=== PATIENT | female | born 1970 | race Caucasian/White ===

== ENCOUNTER 2019-04-06 16:13 | Emergency (ER) | payer OTHER ==
--- NOTE | 2019-04-06 16:22 | PDOC ---
History of Present Illness - General Stated Complaint: PAIN Time Seen by Provider: 04/06/19 16:21 History Source: Patient Exam Limitations: No Limitations - History of Present Illness Initial Comments: 04/06/19 16:22 Jennyfer Kennedy is a 49F with PMH chronic back pain s/p lifting injury 1 year ago presenting with worsening neck/arm pain and dizziness. 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 Was supposed to have back imaging, but was unable to get insurance to pay for imaging and it was never done. Per at bedside, now has insurance and is eligible for MRI of back. Has daily back/ neck pain, used ibuprofen to control but caused upset stomach. Sees back pain specialist, today got Toradol and 2x trigger point injections. While there, felt dizzy and nauseated, no LOC, but pain worsened, sent to [facility] ED by EMS because doctor was concerned that nausea was related to pain. No other PMH or medications. Denies tobacco/alcohol/drug use. Past History - Past Medical History Allergies/Adverse Reactions: Allergies Allergy/AdvReac Type Severity Reaction Status Date / Time No Known Allergies Allergy Verified 04/06/19 16:35 Home Medications: Ambulatory Orders Methocarbamol [Robaxin -] 500 mg PO BID #14 tablet 04/06/19 Review of Systems - Review of Systems Constitutional: Yes: Weakness. No: Chills, Fever HEENTM: No: Symptoms Reported Respiratory: No: Symptoms reported Cardiac (ROS): No: Symptoms Reported ABD/GI: No: Symptoms Reported : No: Symptoms Reported Musculoskeletal: Yes: Back Pain (T to L spine), Joint Pain (R shoulder), Neck Pain (R neck) Integumentary: No: Symptoms Reported Neurological: No: Numbness, Paresthesia, Tingling, Weakness, Unsteady Gait Endocrine: No: Symptoms Reported All Other Systems: Reviewed and Negative *Physical Exam - Physical Exam General Appearance: Yes: Nourished, Appropriately Dressed. No: Apparent Distress HEENT: positive: EOMI, ANDI, Normal ENT Inspection, Symmetrical, Pharynx Normal , Hearing Grossly Normal. negative: Scleral Icterus (R), Scleral Icterus (L) Neck: positive: Tender (R >>> L), Trachea midline, Supple, Tender lateral (R side), Other (full ROM, no evidence of external injury, unwilling to move neck 2 /2 pain). negative: Lymphadenopathy (R), Lymphadenopathy (L) Respiratory/Chest: positive: Lungs Clear, Normal Breath Sounds. negative: Chest Tender, Respiratory Distress, Accessory Muscle Use, Crackles, Rales, Rhonchi, Stridor, Wheezing Cardiovascular: positive: Regular Rhythm, Regular Rate Gastrointestinal/Abdominal: positive: Normal Bowel Sounds, Flat, Soft. 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 negative: Numbness ED Treatment Course - LABORATORY CBC & Chemistry Diagram: 04/06/19 17:38 04/06/19 17:38 Medical Decision Making - Medical Decision Making 04/06/19 16:22 Jennyfer Kennedy is a 49F with PMH chronic back pain s/p lifting injury 1 year ago presenting with worsening neck/arm pain and dizziness. Presentation concerning for spinal cord compression given R sided pain, but no sensory or motor deficits. IM trigger point injections raises concerns for hematoma vs infected site. Dizziness/nausea concerning for cardiac etiology. Needs imaging and pain control. Will evaluate via: CMP CBC Coags Serum CXR ECG UA/UC Will give 1L IVF, Zofran for nausea/dizziness Will give 1g Ofirmev and 5mg Flexeril for muscle pain 04/06/19 18:8 UA negative for UTI, blood, ketones CBC notable for WBC 11.3 consistent with minor infection ECG shows: NSR with HR 74, QTc 444, no evidence of ischemic changes or TWI 04/06/19 19:57 No fracture noted on CT c-spine read, no evidence of canal stenosis or disc narrowing concerning for nerve radiculopathy. 04/06/19 20:34 Patient stable to be discharged home with f/u with pain specialist. Sent home with Robaxcin for PRN use. Discharge - Discharge Information Problems reviewed: Yes Clinical Impression/Diagnosis: Dizziness, Neck pain on right side, Arm pain, right Back pain Qualifiers: Back pain location: thoracic back pain Chronicity: chronic Back pain laterality : right Qualified Code(s): M54.6 - Pain in thoracic spine Condition: Stable Disposition: HOME - Additional Discharge Information Prescriptions: Methocarbamol [Robaxin -] 500 mg PO BID #14 tablet - Follow up/Referral - Patient Discharge Instructions Patient Printed Discharge Instructions: DI for Neck Pain Additional Instructions: Today you were evaluated for neck/shoulder/back pain, as well as dizziness. We were concerned about your pain, and your dizziness, so we checked your heart, blood labs, and got a CT scan of your neck to evaluate. Your blood labs show: no evidence of infection, anemia, or electrolyte abnormalities Your urine labs show: no urinary tract infection Your CT scan shows: no signs of fracture or nerve pinching Your chest X-ray shows: no evidence of heart disease or pneumonia Your pain is likely related to your injury, but needs an MRI to evaluate further. Please rest your right arm, take ibuprofen as needed for pain, and use ice packs to help with the pain. We have prescribed a muscle relaxant called Robaxin for your pain, please do not drive or operate machinery when taking. Take it at night before bedtime. Please follow-up with your primary doctor for the next 3 days for further care, and your pain doctor for further treatments. If you need a referral to get an MRI, we can provide one. If you experience numbness or tingling in your arm, become unable to move your arm, have difficulty breathing, fever, nausea/ vomiting, shortness of breath, chest pain, or any other new or concerning symptoms, please return to the emergency room. Hoy fue evaluado por dolor de carmenza / hombro / espalda, as demetrio mareos. Estbamos preocupados por jamil dolor y jaye mareos, por lo que revisamos jamil corazn , anlisis de tigre y obtuvimos trudy tomografa computarizada de jamil carmenza para evaluar. Los anlisis de tigre muestran: no hay evidencia de infeccin, anemia o anomalas electrolticas. Jaye anlisis de orina muestran: sin infeccin del tracto urinario Jamil tomografa computarizada muestra: no hay signos de fractura o pellizco nervioso Jamil radiografa de trax muestra: no hay evidencia de enfermedad cardaca o neumona Es probable que jamil dolor est relacionado con jamil lesin, dexter necesita trudy resonancia magntica para evaluarlo ms a fondo. Descanse el brazo derecho, tome ibuprofeno segn sea necesario para el dolor y use compresas de hielo para aliviar el dolor. Le hemos recetado un relajante muscular llamado Robaxin para jamil dolor, no conduzca ni maneje maquinaria cuando lo est tomando. Tmelo por la noche antes de acostarse. Taniya un seguimiento con jamil mdico de cabecera gino los prximos 3 [place] para recibir ms atencin y con jamil mdico especialista en dolor para recibir ms tratamientos. Si necesita trudy referencia para obtener trudy resonancia magntica, podemos proporcionarle trudy. Si siente entumecimiento u hormigueo en jamil brazo, no puede moverlo, tiene dificultad para respirar, fiebre, nuseas / vmitos, dificultad para respirar, dolor en el pecho o cualquier otro sntoma nuevo o preocupante, regrese a la katja de emergencias. Print Language: DUTCH - Post Discharge Activity
[2019-04-06 17:01] VITALS: TEMP 97.8; BMI 23.1
[2019-04-06] MEDS ORDERED: SODIUM CHLORIDE 0.9% 500 ML INFUS.BAG IV ONE (17:13)
[2019-04-06] MEDS ORDERED: ONDANSETRON 4 MG/2 ML VIAL IVPUSH ONE (17:13)
[2019-04-06] MEDS ORDERED: ONDANSETRON 4 MG/2 ML VIAL ONE (17:19)
--- NOTE | 2019-04-06 17:19 | PDOC ---
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 Was supposed to have back imaging, but was unable to get insurance to pay for imaging and it was never done. Pt was at a physician's office today getting a trigger point injection she suddenly felt dizzy and nauseated No syncope or LOC Pt pain has worsened and dizziness did not resolve She was therefore sent to the ER for evaluation PMH: denies Denies tobacco/alcohol/drug use. - Physicial Exam PE: 04/06/19 17:19 GENERAL: The patient is in no acute distress, appears uncomfortable. EYES: PERRLA, No nstagmus ENT: Ears normal, nares patent, oropharynx clear without exudates. Moist mucous membranes. NECK: Normal range of motion, supple LUNGS: Breath sounds equal, clear to auscultation bilaterally. No wheezes, and no crackles. HEART:Regular rate and rhythm, normal S1 and S2 without murmur, rub or gallop. ABDOMEN: Soft, nontender, normoactive bowel sounds. EXTREMITIES: Normal range of motion, no edema. NEUROLOGICAL: Cranial nerves II through XII grossly intact. Normal speech. No focal neurological deficits. SKIN: Warm, Dry, normal turgor, no rashes or lesions noted. 04/06/19 18:09 - Medical Decision Making 04/06/19 18:10 49 yo F presenting with neck pain and right arm tingling, weakness Dizziness most likely a response to painful procedure However, will eval for other etiologies - ACS, Anemia, Dehydation Pt neck pain is chronic Likely: disc herniation, unlikely fracture or dislocation Will do: Labs EKG Will give: IVF Pain medications CT C spine 04/06/19 19:47 Laboratory Tests 04/06/19 04/06/1904/06/19 17:30 17:38 17:38 WBC 11.3 H Hgb 14.7 Hct 43.2 Plt Count 214 INR BUN 13.8 Creatinine 0.8 Creatine Kinase 188 CK-MB (CK-2) < 1.0 Troponin I < 0.02 Urine Blood Negative Urine Nitrite Negative Ur Leukocyte Esterase Negative 04/06/19 17:38 WBC Hgb Hct Plt Count INR 1.08 BUN Creatinine Creatine Kinase CK-MB (CK-2) Troponin I Urine Blood Urine Nitrite Ur Leukocyte Esterase 04/06/19 20:31 CT: Multilevel degenerative disc changes are seen No facet arthropathy is noted. No gross disc herniation is identified No canal stenosis Prevertebral soft tissues demonstrate no obvious pathology Patient given a copy of her CT Upon reassessment, after Robaxin patient reports near resolution of symptoms Will discharge home. We will asked patient to follow-up with her physicians for MRI I discussed the physical exam findings, ancillary test results and final diagnoses with the patient. I answered all of the patient's questions. The patient was satisfied with the care received and felt comfortable with the discharge plan and treatment plan. The patient will call their primary care physician within 24 hours to arrange follow-up and will return to the Emergency Department with any new, persistant or worsening symptoms. The patient understands that we could not exclude the possibility of an ectopic based on her emergency department workup. She understands that it is extremely important that she sees her physician within 24-48 hours for a repeat visit, including repeat blood work. Clinical impression: Musculoskeletal neck pain, initial presentation
[2019-04-06] MEDS ORDERED: ACETAMINOPHEN 1000 MG/100 ML VIAL (NON FORMULARY) IVPB ONE (17:21)
[2019-04-06] MEDS ORDERED: CYCLOBENZAPRINE HCL 10 MG TABLET (FP) PO ONE (17:21)
[2019-04-06] MEDS ORDERED: ACETAMINOPHEN INJECTION 100 ML IVPB ONE (17:42)
[2019-04-06 17:48] LABS: PH,URINE 5.5 (5.0-8.0); URINE APPEARANCE CLEAR; URINE BILIRUBIN NEGATIVE (NEGATIVE); URINE COLOR YELLOW; URINE GLUCOSE (UA) NEGATIVE (NEGATIVE); URINE KETONE 1+ (NEGATIVE); URINE LEUK ESTERASE NEGATIVE (NEGATIVE); URINE NITRITE NEGATIVE (NEGATIVE); URINE PROTEIN NEGATIVE (NEGATIVE); URINE UROBILINOGEN 0.2 mg/dL (0.2-1.0)
[2019-04-06 18:13] LABS: BASO % 0.4 % (0-2.0); EOS % 0.4 % (0-4.5); HEMATOCRIT 43.2 % (32.4-45.2); HEMOGLOBIN 14.7 GM/dL (10.7-15.3); LYMPH % 17.2 % (8-40); MCH 29.7 pg (25.7-33.7); MEAN CELL VOLUME 87.4 fl (80-96); MEAN PLT VOLUME 10.5 fl (7.5-11.1); MONO % 8.8 % (3.8-10.2); NEUT % 73.2 % (42.8-82.8); PLATELET COUNT 214 K/MM3 (134-434); RBC 4.95 M/mm3 (3.60-5.2); RDW 13.9 % (11.6-15.6); WHITE BLOOD COUNT 11.3 K/mm3 (4.0-10.0)
[2019-04-06 18:35] LABS: INR 1.08 (0.83-1.09); PROTHROMBIN TIME (PATIENT) 12.8 SEC (9.7-13.0)
[2019-04-06 18:45] LABS: ALBUMIN 4.1 g/dl (3.4-5.0); ALK PHOS 102 U/L (45-117); ANION GAP 8 MMOL/L (8-16); BILIRUBIN,TOTAL 0.5 mg/dL (0.2-1); BLOOD UREA NITROGEN 13.8 mg/dL (7-18); CALCIUM 9.1 mg/dL (8.5-10.1); CHLORIDE 105 mmol/L (98-107); CO2 25 mmol/L (21-32); CREATININE 0.8 mg/dL (0.55-1.3); GLUCOSE,RANDOM 90 mg/dL (74-106); POTASSIUM 4.6 mmol/L (3.5-5.1); SGOT/AST 23 U/L (15-37); SGPT/ALT 29 U/L (13-61); SODIUM 138 mmol/L (136-145)
[2019-04-06] MEDS ORDERED: CYCLOBENZAPRINE HCL 10 MG TABLET (FP) ONE (18:48)
[2019-04-06 20:37] VITALS: BP 98/62; PULSE 76
--- NOTE | 2019-04-07 14:34 | EKG ---
Test Reason : Blood Pressure : / mmHG Vent. Rate : 074 BPM Atrial Rate : 074 BPM P-R Int : 130 ms QRS Dur : 088 ms QT Int : 400 ms P-R-T Axes : 060 039 045 degrees QTc Int : 444 ms POOR DATA QUALITY, INTERPRETATION MAY BE ADVERSELY AFFECTED NORMAL SINUS RHYTHM INCOMPLETE RBBB NO PREVIOUS ECGS AVAILABLE Confirmed by RICA OGLESBY MD ([id number]) on 04/07/2019 2:34:40 PM Referred By: Confirmed By:RICA OGLESBY MD
== END 2019-04-06 20:38 | disposition home or self-care (01) ==
LOC: JER 16:13
PROC: 3E033NZ Introduction of Analgesics, Hypnotics, Sedatives into Peripheral Vein, Percutaneous Approach (ICD-10-PCS; principal; 2019-04-06)
PROC: 3E033GC Introduction of Other Therapeutic Substance into Peripheral Vein, Percutaneous Approach (ICD-10-PCS; 2019-04-06)
DX: M54.6 Pain in thoracic spine (principal); M54.2 Cervicalgia; T14.90XS Injury, unspecified, sequela; X50.0XXS Overexertion from strenuous movement or load, sequela
CPT/HCPCS: 36415; 71046-TC-FY; 72125-TC; 80053; 81003; 82550; 82553; 84484; 84703; 85025; 85610; 87086; 93005; 93010; 99283-25; J0131

== ENCOUNTER 2019-05-26 10:08 | Day surgery (SDC) | payer BC, OTHER ==
[2019-05-25 18:17] VITALS: BMI 20.9
[2019-05-26] MEDS ORDERED: TRIAMCINOLONE ACET 40MG/1ML VIAL ONE ×2 (11:20→11:22)
[2019-05-26] MEDS ORDERED: BUPIVACAINE HCL/PF 0.5% (5 MG/ML) 30 ML VIAL IJ ONE ×2 (11:21→12:17)
[2019-05-26] MEDS ORDERED: MIDAZOLAM HCL 2 MG/2 ML SINGLE DOSE VIAL ONE ×2 (11:26)
--- NOTE | 2019-05-26 11:39 | HP ---
Admitting History and Physical - Admission Chief Complaint: Neck and shoulder Pain History of Present Illness: The patient sustained an injury at work and has chronic neck pain for over 1 year. - Past Medical History ...LMP: 05/01/19 - Smoking History Smoking history: Never smoked Have you smoked in the past 12 months: No - Alcohol/Substance Use Hx Alcohol Use: No Home Medications - Allergies Allergies/Adverse Reactions: Allergies Allergy/AdvReac Type Severity Reaction Status Date / Time No Known Allergies Allergy Verified 05/26/19 11:23 - Home Medications Home Medications: Ambulatory Orders Acetaminophen [Tylenol] 325 mg PO PRN PRN 05/25/19 Ibuprofen 200 mg PO PRN PRN 05/25/19 Physical Examination Vital Signs: Vital Signs Temperature 97.3 F L 05/26/19 11:30 Pulse Rate 73 05/26/19 11:30 Respiratory Rate 16 05/26/19 11:30 Blood Pressure 108/74 05/26/19 11:30 O2 Sat by Pulse Oximetry (%) 100 05/26/19 11:30 Constitutional: Yes: Well Nourished Eyes: Yes: WNL HENT: Yes: WNL Neck: Yes: WNL Cardiovascular: Yes: WNL Respiratory: Yes: WNL Musculoskeletal: Yes: Joint Stiffness, Muscle Pain, Other (TTP over the articular Pillars Pain with neck extension.) Assessment/Plan The patients pain is secondary to cervical spondylosis. 1. Pt will receive diagnostic b/L TON c3 c4 c5 medial medial branch blocks under fluoroscopic guidance
[2019-05-26] MEDS ORDERED: PROPOFOL 20 ML ONE (12:14)
[2019-05-26] MEDS ORDERED: IOHEXOL 180 MG/1 ML ML IJ ONE (12:17)
[2019-05-26] MEDS ORDERED: KETOROLAC TROMETHAMINE 30 MG/1 ML VIAL ONE (12:27)
[2019-05-26] MEDS ORDERED: DEXAMETHASONE SOD PHOSPHATE 4 MG/1 ML VIAL ONE (12:27)
[2019-05-26] MEDS ORDERED: oxyCODONE HCL 5 MG TABLET PO PRN (13:42)
[2019-05-26] MEDS ORDERED: ONDANSETRON 4 MG/2 ML VIAL IVPUSH PRN (13:42)
[2019-05-26] MEDS ORDERED: LACTATED RINGERS SOLUTION 1,000 ML IV SCH (13:45)
[2019-05-26 15:34] VITALS: TEMP 98.3
[2019-05-26 17:28] VITALS: BP 104/65; PULSE 81
--- NOTE | 2019-06-01 12:05 | PROC ---
Procedure Note Procedure: Pre Op Diagnosis: Cervical Spondylosis Post Op Diagnosis: same Anasthesia:MAC Procedure: Right and Left TON C# C$ C% medial branch blocks After the risks and benefits were explained, informed consent was obtained. The patient was then taken to the procedure room and positioned prone on the procedure table. Time out was performed. The region overlying the appropriate vertebral bodies was identified using fluoroscopy. The skin was prepped and draped in the usual sterile fashion. Using fluoroscopic guidance, 25 gauge 3.5 inch spinal needles were then introduced to the fossa at the center of the waists of the articular pillars where the BILATERAL TON C3, C4, and C5 medial branches are located. Omnipaque 180 confirmed appropriate needle placement. There was no epidural or vascular flow observed. .5 % bupivacaine was drawn into a syringe. 0.5cc of this solution was then injected at each level. The same procedure was repeated on the LEFT side at the same levels. The patient tolerated the procedure well and there were no complications. The patient was taken to the post procedure recovery area in good condition. Vital signs remained stable before, during, and after the procedure. The patient was given oral and written follow-up instructions. The patient was given a follow up appointment with me in the near future. Law Hayes DO
== END 2019-05-26 16:30 | disposition home or self-care (01) ==
LOC: JASU-SURG 10:08
PROVIDERS: ATTEND Pain Medicine Pain Medicine
PROC: 3E0T33Z Introduction of Anti-inflammatory into Peripheral Nerves and Plexi, Percutaneous Approach (ICD-10-PCS; 2019-05-26)
PROC: 3E0T3BZ Introduction of Anesthetic Agent into Peripheral Nerves and Plexi, Percutaneous Approach (ICD-10-PCS; principal; 2019-05-26 12:00)
DX: M47.812 Spondylosis without myelopathy or radiculopathy, cervical region (principal)
CPT/HCPCS: 76000-TC-FY; 84703

== ENCOUNTER 2019-06-16 06:08 | Day surgery (SDC) | payer BC, OTHER ==
[2019-06-14 15:04] VITALS: BMI 20.9
[2019-06-16] MEDS ORDERED: methylPREDNISolone ACET (DEPO) 80 MG/1 ML VIAL ONE (07:29)
[2019-06-16] MEDS ORDERED: BUPIVACAINE HCL/PF 0.25% (2.5MG/ML) 10 ML VIAL ONE (07:29)
[2019-06-16] MEDS ORDERED: LIDOCAINE HCL 1%, 10 MG/ML (20ML VIAL) ONE (07:49)
[2019-06-16] MEDS ORDERED: TRIAMCINOLONE ACET 40MG/1ML VIAL ONE (07:49)
[2019-06-16] MEDS ORDERED: BETAMET ACET/BETAMET NA PH 30 MG/5 ML VIAL ONE (07:49)
[2019-06-16] MEDS ORDERED: SUCCINYLCHOLINE CHLORIDE 200 MG/10 ML SYRINGE ONE (08:11)
[2019-06-16] MEDS ORDERED: PROPOFOL 20 ML ONE ×2 (08:11)
[2019-06-16] MEDS ORDERED: DEXAMETHASONE SOD PHOSPHATE 4 MG/1 ML VIAL ONE (08:26)
--- NOTE | 2019-06-16 08:28 | HP ---
Admitting History and Physical - Admission Chief Complaint: Neck and right arm pain History of Present Illness: The patient injurred her neck at work resulting in cervical disk herniation. History Source: Patient - Past Medical History ...LMP: 05/01/19 - Smoking History Smoking history: Never smoked Have you smoked in the past 12 months: No - Alcohol/Substance Use Hx Alcohol Use: No Home Medications - Allergies Allergies/Adverse Reactions: Allergies Allergy/AdvReac Type Severity Reaction Status Date / Time No Known Allergies Allergy Verified 06/16/19 06:30 - Home Medications Home Medications: Ambulatory Orders Acetaminophen [Tylenol] 325 mg PO PRN PRN 05/25/19 Ibuprofen 200 mg PO PRN PRN 05/25/19 Review of Systems Findings/Remarks: Right neck adn arm pain Physical Examination Vital Signs: Vital Signs Temperature 97.7 F 06/16/19 06:32 Pulse Rate 72 06/16/19 06:32 Respiratory Rate 16 06/16/19 06:32 Blood Pressure 118/73 06/16/19 06:32 O2 Sat by Pulse Oximetry (%) 99 06/16/19 06:32 Musculoskeletal: Yes: Other (Neck Spurling postive) Imaging - Results MRI: Report Reviewed, Image Reviewed Assessment/Plan The patients neck and arm pain is likley secondary to cervical radiculopathy based on imaging pt report and PE. 1. Pt to receive right C7-T1 Interlaminar epidural Steroid injection. Follow up after injection.
[2019-06-16] MEDS ORDERED: DEXAMETHASONE SOD PHOSPHATE/PF 10 MG/ML SDV ONE (08:29)
[2019-06-16] MEDS ORDERED: LIDOCAINE HCL 1%, 10 MG/ML (20ML VIAL) INF ONE ×2 (08:58)
[2019-06-16] MEDS ORDERED: IOHEXOL 180 MG/1 ML ML IJ ONE ×2 (08:59)
[2019-06-16] MEDS ORDERED: DEXAMETHASONE SOD PHOSPHATE 10 MG/1 ML VIAL IVPUSH ONE ×2 (09:00)
--- NOTE | 2019-06-16 10:16 | PROC ---
Procedure Note Procedure: Preoperative Diagnosis: neck pain/Cervical radiculopathy right Postoperative Diagnosis: same Procedure Performed: Cervical steroid injection at C7-T1 level on Right Anesthesia: MAC Procedure: After the risks and benefits were explained, informed consent was obtained. The patient was then taken to the procedure room and positioned prone on the procedure table. Time out was performed. Interlaminar space was identified using fluoroscopy. The skin was prepped and draped in the usual sterile fashion. The skin and soft tissues were anesthetized using 1% lidocaine. Under intermittent fluoroscopic guidance, a #22 gauge 3.5 inch Tuhoy was successfully directed into the posterior epidural space at the C7-T1 level, using a posterior approach and loss of resistance technique. Needle placement was then confirmed with the injection of Omnipaque 180. Epidural flow was noted and no vascular uptake was noted. A 3 cc cocktail of 1 cc normal saline and 2 cc Dexamethasone 10 mg/mL was then injected at the site. The patients response was again monitored and sensorimotor examination remained unchanged. The patient tolerated the procedure well and there were no complications. The patient was taken to the post procedure recovery area in good condition. Vital signs remained stable before, during, and after the procedure. The patient was given oral and written follow-up instructions. The patient was given a follow up appointment with me in the near future Law PAGAN
[2019-06-16 10:29] VITALS: TEMP 98
[2019-06-16 14:33] VITALS: BP 99/60; PULSE 84
== END 2019-06-16 14:15 | disposition home or self-care (01) ==
LOC: JASU-SURG 06:08
PROVIDERS: ATTEND Pain Medicine Pain Medicine
PROC: 3E0R33Z Introduction of Anti-inflammatory into Spinal Canal, Percutaneous Approach (ICD-10-PCS; 2019-06-16)
PROC: B01BYZZ Fluoroscopy of Spinal Cord using Other Contrast (ICD-10-PCS; 2019-06-16)
PROC: 3E0R3BZ Introduction of Anesthetic Agent into Spinal Canal, Percutaneous Approach (ICD-10-PCS; principal; 2019-06-16 08:51)
DX: M54.12 Radiculopathy, cervical region (principal); M54.5 Low back pain
CPT/HCPCS: 76000-TC-FY; 84703; J1100

== ENCOUNTER 2019-07-14 11:49 | Day surgery (SDC) | payer BC, OTHER ==
[2019-07-13 11:24] VITALS: BMI 20.9
[2019-07-14 12:23] VITALS: TEMP 98.6
[2019-07-14] MEDS ORDERED: MIDAZOLAM HCL 2 MG/2 ML SINGLE DOSE VIAL ONE ×2 (14:01→14:58)
[2019-07-14] MEDS ORDERED: LIDOCAINE HCL 1%, 10 MG/ML (20ML VIAL) NR ONE (14:58)
[2019-07-14] MEDS ORDERED: IOHEXOL 180 MG/1 ML ML IJ ONE (14:58)
[2019-07-14] MEDS ORDERED: BUPIVACAINE HCL/PF 0.5% (5 MG/ML) 30 ML VIAL IJ ONE (14:58)
[2019-07-14 16:24] VITALS: BP 101/64; PULSE 74
== END 2019-07-14 16:27 | disposition home or self-care (01) ==
LOC: JASU-SURG 11:49
PROVIDERS: ATTEND Pain Medicine Pain Medicine
PROC: BR14YZZ Fluoroscopy of Cervical Facet Joint(s) using Other Contrast (ICD-10-PCS; 2019-07-14)
PROC: 3E0T3BZ Introduction of Anesthetic Agent into Peripheral Nerves and Plexi, Percutaneous Approach (ICD-10-PCS; principal; 2019-07-14 14:09)
DX: M47.812 Spondylosis without myelopathy or radiculopathy, cervical region (principal); M54.2 Cervicalgia
CPT/HCPCS: 81025

== ENCOUNTER 2019-11-30 15:54 | Emergency (ER) | payer OTHER ==
[2019-11-30 16:05] VITALS: BP 115/67; PULSE 108; TEMP 98.7; BMI 20.9
--- NOTE | 2019-11-30 16:05 | PDOC ---
Rapid Medical Evaluation Chief Complaint: Back Pain Time Seen by Provider: 11/30/19 16:01 Medical Evaluation: Allergies Allergy/AdvReac Type Severity Reaction Status Date / Time No Known Allergies Allergy Verified 07/13/19 11:24 11/30/19 16:02 I performed a brief in-person evaluation of this patient. Pt is a 49 y/o female with complaint of cramps and tingling in her b/l UE for the last 3 days. She states she had an accident at work for which she is seeing pain management and has had multiple epidural steroid injections. The patient took Tylenol without any relief. Pertinent physical exam findings: moving b/l UE normally, sensation intact, speaking in full and complete sentences. I have ordered the following: none Patient to proceed to ED for further evaluation. Discharge Disposition - Diagnosis Neck pain - Referrals - Patient Instructions - Post Discharge Activity
[2019-11-30] MEDS ORDERED: KETOROLAC TROMETHAMINE 30 MG/1 ML VIAL IM ONE (17:07)
[2019-11-30] MEDS ORDERED: KETOROLAC TROMETHAMINE 30 MG/1 ML VIAL ONE (17:09)
--- NOTE | 2019-11-30 17:46 | PDOC ---
History of Present Illness - General Chief Complaint: Back Pain Stated Complaint: BACK PAIN Time Seen by Provider: 11/30/19 16:01 History Source: Patient Exam Limitations: No Limitations - History of Present Illness Initial Comments: 11/30/19 17:41 49-year-old female Azeri-speaking history of complex regional pain syndrome, myalgia, chronic neck pain status post injury at work March 2018 presents complaining of worsening right-sided neck and right-sided upper back pain with intermittent paresthesias to bilateral upper extremities over the past 3 days. Patient follows up with neurosurgeon Dr. Mohinder Mcarthur amd it training specialist Dr. Law Hayes. Was receiving physical therapy however given COVID pandemic she has been unable to continue physical therapy. Takes gabapentin 300 mg 3 times a day and diclofenac topical as needed. Did not take any pain medicine today. Denies fever, chills, weakness, recent trauma, chest pain, back pain, abdominal pain. Patient called Dr. Mcarthur's office today and windows application packager sent her to the ED. Is this a multiple visit Asthma Patient?: No Past History - Medical History Allergies/Adverse Reactions: Allergies Allergy/AdvReac Type Severity Reaction Status Date / Time No Known Allergies Allergy Verified 07/13/19 11:24 Home Medications: Ambulatory Orders Acetaminophen [Tylenol -] 1,000 mg PO Q6H PRN 07/13/19 Carbamazepine Xr [Tegretol Xr -] 300 mg PO PRN 07/14/19 Anemia: No Asthma: No Cancer: No Cardiac Disorders: No CVA: No COPD: No CHF: No Dementia: No Diabetes: No GI Disorders: No Disorders: No HTN: No Hypercholesterolemia: No Liver Disease: No Seizures: No Thyroid Disease: No - Surgical History Abdominal Surgery: No Appendectomy: No Cardiac Surgery: No Cholecystectomy: Yes Lung Surgery: No Neurologic Surgery: (EPIDURAL INJECTION) Orthopedic Surgery: No - Psycho-Social/Smoking History Smoking History: Never smoked Have you smoked in the past 12 months: No *Physical Exam - Vital Signs Last Vital Signs Temp Pulse Resp BP Pulse Ox 98.7 F 108 H 18 115/67 98 11/30/19 16:01 11/30/19 16:01 11/30/19 16:01 11/30/19 16:01 11/30/19 16:01 ED Treatment Course - Medications Given in the ED: ED Medications Discontinued Medications Generic Name Dose Route Start Last Admin Trade Name eBnny PRN Reason Stop Dose Admin Ketorolac Tromethamine 30 mg 11/30/19 17:07 11/30/19 17:08 Toradol Injection - IM 11/30/19 17:08 30 mg ONCE ONE Administration Medical Decision Making - Medical Decision Making 11/30/19 17:53 49-year-old female Azeri-speaking history of complex regional pain syndrome, myalgia, chronic neck pain status post injury at work March 2018 presents complaining of worsening right-sided neck and right-sided upper back pain with intermittent paresthesias to bilateral upper extremities over the past 3 days. Patient follows up with neurosurgeon Dr. Mohinder Mcarthur amd it training specialist Dr. Law Hayes. Was receiving physical therapy however given COVID pandemic she has been unable to continue physical therapy. Takes gabapentin 300 mg 3 times a day and diclofenac topical as needed. Did not take any pain medicine today. Denies fever, chills, weakness, recent trauma, chest pain, back pain, abdominal pain. Patient called Dr. Mcarthur's office today and windows application packager sent her to the ED. Toradol 30 mg IM Valium 2 mg p.o. Gabapentin 300 mg 1 tablet I attempted to reach both Dr. Mcarthur and Abigail without success Patient agrees to schedule follow-up appointments with both doctors tomorrow 11/30/19 18:17 Patient informs me she has had a constant headache x2 months worsening over the past [address] per patient [address] Hayes sent her for a head CT 1 month ago which she has been unable to get done therefore I will order a head CT at this time. 11/30/19 20:[address] unremarkable Discussed head CT results with patient and provided her a copy of these results She understands she should follow-up with her neurosurgeon and rehab medicine physician Return precautions discussed Discharge - Discharge Information Problems reviewed: Yes Clinical Impression/Diagnosis: Neck pain Back pain Qualifiers: Chronicity: chronic Back pain laterality: right Sciatica presence: without sciatica Condition: Stable Disposition: HOME - Admission No - Follow up/Referral Referrals: Tramaine Grimaldo MD [Primary Care Provider] - - Patient Discharge Instructions - Post Discharge Activity
[2019-11-30] MEDS ORDERED: GABAPENTIN 300 MG CAPSULE PO ONE (17:52)
[2019-11-30] MEDS ORDERED: diazePAM 2 MG TABLET PO ONE (17:53)
[2019-11-30] MEDS ORDERED: GABAPENTIN 100 MG CAPSULE ONE (18:00)
[2019-11-30] MEDS ORDERED: diazePAM 2 MG TABLET ONE (18:00)
== END 2019-11-30 21:13 | disposition home or self-care (01) ==
LOC: JERFT 15:54
PROC: 3E023GC Introduction of Other Therapeutic Substance into Muscle, Percutaneous Approach (ICD-10-PCS; principal; 2019-11-30)
DX: M54.2 Cervicalgia (principal)
CPT/HCPCS: 70450-TC; 99284-25

== ENCOUNTER 2019-12-28 12:17 | Emergency (ER) | payer OTHER ==
[2019-12-28] MEDS ORDERED: CYCLOBENZAPRINE HCL 10 MG TABLET (FP) PO ONE (12:30)
[2019-12-28] MEDS ORDERED: KETOROLAC TROMETHAMINE 30 MG/1 ML VIAL IM ONE (12:30)
--- NOTE | 2019-12-28 12:30 | PDOC ---
Rapid Medical Evaluation Time Seen by Provider: 12/28/19 12:25 Medical Evaluation: Allergies Allergy/AdvReac Type Severity Reaction Status Date / Time No Known Allergies Allergy Verified 07/13/19 11:24 12/28/19 12:25 49 year old female with no pmhx complaining of neck and back pain x 2 years worsening today. States was sleeping and woke up with worsening pain. Took tylenol with mild releif PE TTP to cevical paraverebtals no midline tenderness Plan Toradol Flexeril Pt to precede to ED for further treatment and care
[2019-12-28 12:38] VITALS: BP 134/68; PULSE 84; TEMP 98.5; BMI 20.9
[2019-12-28] MEDS ORDERED: KETOROLAC TROMETHAMINE 30 MG/1 ML VIAL ONE (12:51)
[2019-12-28] MEDS ORDERED: CYCLOBENZAPRINE HCL 10 MG TABLET (FP) ONE (12:51)
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
[2019-12-28] MEDS ORDERED: morphine CARPU-JECT 2 MG/1 ML DISP.SYRIN IM ONE (14:12)
--- NOTE | 2019-12-28 14:12 | PDOC ---
History of Present Illness - General Chief Complaint: Pain Stated Complaint: UPPER BACK PAIN Time Seen by Provider: 12/28/19 12:25 - History of Present Illness Initial Comments: Pt is a 49yo F with PMH of chronic neck and back pain s/p work injury in Mar 2018, who presents with neck and back pain. Pt states that this is the same pain that she has felt for the past 2 years, following her work injury. Current pain is unchanged in character, >10/10, radiating to b/l arms with cramping. Reports episode of dizziness and lightheadedness 3 days ago. States that she takes tylenol and ibuprofen for pain control, which has not helped. States that she has prescriptions for pain control that she has had difficulty filling due to insurance/workers compensation issues. States that she usually gets injections from Dr. Velásquez but has not had any for past 4 months due to pandemic. Her next appointment with him is on 01/08. Reports chronic occasional chest pain, SOB, and weakness. Denies fevers, chills. Neurosurgeon: Lyubov Pain management: Christen PMH: see above PSHx: denies Meds: Tylenol, ibuprofen All: denies Past History - Medical History Allergies/Adverse Reactions: Allergies Allergy/AdvReac Type Severity Reaction Status Date / Time No Known Allergies Allergy Verified 12/28/19 12:30 Home Medications: Ambulatory Orders Acetaminophen [Tylenol -] 1,000 mg PO Q6H PRN 07/13/19 Carbamazepine Xr [Tegretol Xr -] 300 mg PO PRN 07/14/19 Anemia: No Asthma: No Cancer: No Cardiac Disorders: No CVA: No COPD: No CHF: No Dementia: No Diabetes: No GI Disorders: No Disorders: No HTN: No Hypercholesterolemia: No Liver Disease: No Seizures: No Thyroid Disease: No - Surgical History Abdominal Surgery: No Appendectomy: No Cardiac Surgery: No Cholecystectomy: Yes Lung Surgery: No Neurologic Surgery: (EPIDURAL INJECTION) Orthopedic Surgery: No - Psycho-Social/Smoking History Smoking History: Never smoked Have you smoked in the past 12 months: No Review of Systems - Review of Systems Able to Perform ROS?: Yes Comments:: CONSTITUTIONAL:reports generalized weakness; denies fever, chills, diaphoresis, denies loss of appetite HEENT:Reports blurry "zig zag" vision CARDIOVASCULAR:reports chronic chest pain, lightheadedness RESPIRATORY:reports chronic occasional dyspnea; denies cough, wheezing GASTROINTESTINAL: denies abdominal pain, nausea, vomiting, diarrhea, constipa tion MUSCULOSKELETAL:Reports myalgia, neck pain, back pain NEUROLOGIC:reports dizziness; denies headache, loss of consciousness, bladder or bowel incontinence *Physical Exam - Vital Signs Last Vital Signs Temp Pulse Resp BP Pulse Ox 98.5 F 84 18 134/68 99 12/28/19 12:24 12/28/19 12:24 12/28/19 12:24 12/28/19 12:24 12/28/19 12:24 - Physical Exam General: awake, alert, in moderate distress, well developed, well nourished Head: normocephalic, atraumatic Eyes: PERRL, EOMI, anicteric sclera ENT: hearing grossly normal, Moist mucous membranes Neck: supple, limited ROM, no LAD, JVD or masses, tender to palpation Lung: equal breath sounds b/l, CTA b/l, no crackles, wheezes; no distress, speaks full sentences Heart: RRR, normal S1, S2, no murmurs, rubs, gallops Abdomen: soft, non tender, normoactive bowel sounds, no guarding, rebound, masses Extremities: no edema, no erythema or tenderness, PT pulses 2+ and symmetric, no clubbing, cyanosis Neuro: CN2-12 grossly intact, moves all extremities, normal speech, sitting in wheelchair, sensation intact; midline tender to palpation Skin: warm, dry, no rashes or lesions noted ED Treatment Course - Medications Given in the ED: ED Medications Discontinued Medications Generic Name Dose Route Start Last Admin Trade Name Udayq PRN Reason Stop Dose Admin Cyclobenzaprine HCl 10 mg 12/28/19 12:30 12/28/19 13:00 Flexeril - PO 12/28/19 12:31 10 mg ONCE ONE Administration Ketorolac Tromethamine 30 mg 12/28/19 12:30 12/28/19 13:00 Toradol Injection - IM 12/28/19 12:31 30 mg ONCE ONE Administration Medical Decision Making - Medical Decision Making 49yo F with hx of chronic neck and back pain s/p work injury in Mar 2018 presents with neck and back pain, unchanged from prior. Vital Signs Period Temp Pulse Resp BP Sys/[place] Pulse Ox Last 24 Hr 98.5 F 84 18 134/68 99 DDx: musculoskeletal pain, osteoarthritis, cervical disk herniation, cervical spondylosis Plan: pain control Pt given Toradol, Flexeril with no improvement in pain Pt given IM morphine and lidocaine patch for additional pain control. On chart review, patient is treated for cervical radiculopathy with steroid injections from Dr. Hayes. Patient was seen here on 11/30/2019 for similar complaints and managed with pain control. At that time, head CT showed no focal intracranial lesion or hemorrhage. On reassessment, pt was complaining of epigastric abdominal pain. She was nontender to palpation while pressing with stethoscope, however she became tearful and crying when I manually palpated her abdomen. On initial exam, she refused to move her neck due to pain, however, on reassessment, she was able to move her neck as I checked placement of lidocaine patch and she did not exhibit any midline tenderness. Patient stable for discharge. Informed that she should follow up with pain management regarding pain control. Given follow up instructions and strict return precautions. Patient expressed understanding and agreed to plan. Disposition: Discharge to home Discharge - Discharge Information Problems reviewed: Yes Clinical Impression/Diagnosis: Neck pain Condition: Stable Disposition: HOME - Follow up/Referral Referrals: Ryan Velásquez MD [Staff Physician] - Mohinder Mcarthur MD, FAANS [Staff Physician] - - Patient Discharge Instructions Patient Printed Discharge Instructions: DI for Low Back Pain, DI for Thoracic Back Pain, DI for Chronic Neck Pain Additional Instructions: You came into the ER chronic neck and back pain. In the ED, you were evaluated with physical exam. We gave you pain medications. There does not appear to be an acute need for immediate hospitalization. You were advised to follow up with your pain medicine doctor and neurosurgeon within one week. Home Care and Follow Up: - You may use over the counter medications as needed for pain at home. 650- 1000mg acetaminophen (Tylenol) or 600mg ibuprofen (Motrin or Advil) can be used every 6-8 hours. If needed for continued pain, these medications may be alternated every 3-4 hours. For example, if you take ibuprofen at 9am, you may take acetaminophen at noon, ibuprofen at 3pm, etc. - It is strongly recommended that you take ibuprofen with food to help prevent stomach irritation. If you are taking it for more than a day or two, you may consider taking an acid medication such as Pepcid, available over the counter, to protect your stomach. This should be taken first thing in the morning 30-60 minutes before any food or medications. - You may buy a numbing patch that contains lidocaine (the patch is 4% lidocaine) that can be placed over the areas of greatest pain. The lidocaine patch may be placed for 12 hours then removed for 12 hours. - Try using an ice pack for 20 minutes every hour or a heating pad for additional pain control. These should NOT be used over the lidocaine patch, but you may place them over the areas of pain while the patch is off. - Do not stop moving around. As much as you can tolerate, continue to do light exercise and stretching exercises. Increase your activity level as much as you can tolerate daily. Come back to the ER immediately with any new or worsening concerns (such as blurry vision, new weakness, bowel or bladder incontinence, headache) Llegaste a urgencias con dolor crnico de carmenza y espalda. En el servicio de urgencias, lo evaluaron con un examen fsico. Te dimos medicamentos para el dolor. No parece shirley trudy necesidad aguda de hospitalizacin inmediata. Se le aconsej que hiciera un seguimiento con jamil mdico y neurocirujano especialista en dolor. Cuidados en el hogar y seguimiento: - Puede usar medicamentos de venta buster segn sea necesario para el [place] [facility] [place] Se pueden usar 650-1000 mg de acetaminofeno (Tylenol) o 600 mg de ibuprofeno (Motrin o Advil) cada 6-8 horas. Si es necesario para el dolor continuo, estos medicamentos pueden alternarse cada 3-4 horas. Por ejemplo, si enrique ibuprofeno a las 9 a.m., puede artemio acetaminofeno al medioda, ibuprofeno a las 3 p.m., etc. - Se recomienda encarecidamente que tome ibuprofeno con alimentos para ayudar a prevenir la irritacin estomacal. Si lo est tomando gino ms de un da o dos, puede considerar artemio un medicamento cido demetrio Pepcid, de venta buster, para proteger jamil estmago. [place] debe tomarse a primera hora de la maana 30-60 minutos antes de cualquier comida o medicamento. - Puede comprar un parche adormecedor que contiene lidocana (el parche es 4% de lidocana) que se puede colocar sobre las reas de mayor dolor. El parche de lidocana puede colocarse gino 12 horas y luego retirarse gino 12 horas. - Intente usar trudy compresa de hielo gino 20 minutos cada hora o trudy a lmohadilla trmica para controlar el dolor adicional. Estos NO deben usarse sobre el parche de lidocana, dexter puede colocarlos sobre las reas de dolor mientras el parche est apagado. - No dejes de moverte. Tanto demetrio pueda tolerar, contine haciendo ejercicios ligeros y ejercicios de estiramiento. Aumente jamil nivel de actividad tanto demetrio pueda tolerar diariamente. Regrese a la katja de emergencias de inmediato con cualquier problema nuevo o que empeore (demetrio visin borrosa, nueva debilidad, incontinencia intestinal o vesical, dolor de marissa) Print Language: [place] - Post Discharge Activity
[2019-12-28] MEDS ORDERED: morphine SULFATE 4 MG/ML VIAL ONE (14:15)
[2019-12-28] MEDS ORDERED: LIDOCAINE 5% TOPICAL PATCH TP ONE (14:35)
[2019-12-28] MEDS ORDERED: LIDOCAINE 5% TOPICAL PATCH ONE (14:46)
[2019-12-28] MEDS ORDERED: LIDOCAINE PATCH REMOVAL MC SCH (22:00)
== END 2019-12-28 15:59 | disposition home or self-care (01) ==
LOC: JER 12:17
PROC: 3E0233Z Introduction of Anti-inflammatory into Muscle, Percutaneous Approach (ICD-10-PCS; principal; 2019-12-28)
PROC: 3E0233Z Introduction of Anti-inflammatory into Muscle, Percutaneous Approach (ICD-10-PCS; 2019-12-28)
DX: M54.2 Cervicalgia (principal)
CPT/HCPCS: 99285-25

== ENCOUNTER 2020-11-13 17:26 | Emergency (ER) | payer BC, OTHER ==
[2020-11-13 17:42] VITALS: TEMP 98.3; BMI 21.2
[2020-11-13] MEDS ORDERED: KETOROLAC TROMETHAMINE 60 MG/2 ML VIAL IM ONE (18:28)
[2020-11-13] MEDS ORDERED: METHOCARBAMOL 500 MG TABLET PO ONE (18:28)
[2020-11-13] MEDS ORDERED: LIDOCAINE 5% TOPICAL PATCH TP ONE (18:28)
[2020-11-13] MEDS ORDERED: LIDOCAINE 5% TOPICAL PATCH ONE (18:33)
[2020-11-13] MEDS ORDERED: METHOCARBAMOL 500 MG TABLET ONE (18:33)
[2020-11-13] MEDS ORDERED: KETOROLAC TROMETHAMINE 30 MG/1 ML VIAL ONE (18:34)
[2020-11-13 20:30] VITALS: BP 127/89; PULSE 73
== END 2020-11-13 20:30 | disposition home or self-care (01) ==
LOC: JER 17:26
PROC: 3E0233Z Introduction of Anti-inflammatory into Muscle, Percutaneous Approach (ICD-10-PCS; principal; 2020-11-13)
DX: M54.2 Cervicalgia (principal)
CPT/HCPCS: 72040-TC; 73130-TC-RT-FY; 99284-25

== ENCOUNTER 2020-11-22 04:26 | Day surgery (SDC) | payer BC, OTHER ==
[2020-11-22] MEDS ORDERED: LIDOCAINE HCL/PF 1% SDV 5ML VIAL ONE (07:12)
[2020-11-22] MEDS ORDERED: BUPIVACAINE HCL/PF 0.5% (5MG/ML) 10 ML VIAL ONE (07:12)
[2020-11-22 10:37] VITALS: BMI 21.8
[2020-11-22] MEDS ORDERED: LIDOCAINE 1% P/F 10 MG/ML VIAL INF ONE (11:15)
[2020-11-22] MEDS ORDERED: IOHEXOL 180 MG/1 ML ML IJ ONE (11:16)
[2020-11-22] MEDS ORDERED: BUPIVACAINE HCL/PF 0.5% (5MG/ML) 10 ML VIAL IJ ONE (11:17)
[2020-11-22] MEDS ORDERED: DEXAMETHASONE SOD PHOSPHATE 10 MG/1 ML VIAL ONE (11:45)
[2020-11-22] MEDS ORDERED: MIDAZOLAM HCL 2 MG/2 ML SINGLE DOSE VIAL ONE ×2 (12:02→12:19)
[2020-11-22] MEDS ORDERED: PROPOFOL 20 ML ONE (12:07)
[2020-11-22] MEDS ORDERED: ACETAMINOPHEN 325 MG TABLET (FP) ONE (13:41)
[2020-11-22] MEDS ORDERED: ACETAMINOPHEN 325 MG TABLET (FP) PO ONE (13:56)
[2020-11-22 17:54] VITALS: BP 100/68; PULSE 88; TEMP 97.6
== END 2020-11-22 17:00 | disposition home or self-care (01) ==
LOC: JASU-SURG 04:26
PROVIDERS: ATTEND Pain Medicine Pain Medicine
PROC: BR14YZZ Fluoroscopy of Cervical Facet Joint(s) using Other Contrast (ICD-10-PCS; 2020-11-22)
PROC: 3E0T3BZ Introduction of Anesthetic Agent into Peripheral Nerves and Plexi, Percutaneous Approach (ICD-10-PCS; principal; 2020-11-22 09:30)
DX: M47.812 Spondylosis without myelopathy or radiculopathy, cervical region (principal)
CPT/HCPCS: 76000-TC-FY; J1100

== ENCOUNTER 2020-11-24 13:05 | Emergency (ER) | payer BC, OTHER ==
[2020-11-24 13:12] VITALS: BP 125/81; PULSE 96; TEMP 98.4; BMI 25.2
[2020-11-24] MEDS ORDERED: KETOROLAC TROMETHAMINE 60 MG/2 ML VIAL IM ONE (14:17)
[2020-11-24] MEDS ORDERED: METHOCARBAMOL 500 MG TABLET PO ONE (14:17)
[2020-11-24] MEDS ORDERED: METHOCARBAMOL 500 MG TABLET ONE (14:22)
[2020-11-24] MEDS ORDERED: KETOROLAC TROMETHAMINE 60 MG/2 ML VIAL ONE (14:22)
== END 2020-11-24 17:50 | disposition left against medical advice (07) ==
LOC: JER 13:05
PROC: 3E0233Z Introduction of Anti-inflammatory into Muscle, Percutaneous Approach (ICD-10-PCS; principal; 2020-11-24)
DX: M54.2 Cervicalgia (principal); M47.22 Other spondylosis with radiculopathy, cervical region
CPT/HCPCS: 99284-25

== ENCOUNTER 2021-05-20 08:48 | Emergency (ER) | payer BC, OTHER ==
[2021-05-20 09:00] VITALS: BP 118/80; PULSE 79; TEMP 98.2; BMI 21.8
[2021-05-20] MEDS ORDERED: PANTOPRAZOLE SODIUM 40 MG VIAL IVPB ONE (09:37)
[2021-05-20] MEDS ORDERED: MAG HYDROX/AL HYDROX/SIMETH -MYLANTA- ORAL SUSPENSION PO ONE (09:38)
[2021-05-20] MEDS ORDERED: ONDANSETRON 4 MG/2 ML VIAL IVPUSH ONE (09:40)
[2021-05-20 10:12] LABS: BASO % 0.6 % (0-2.0); EOS % 1.3 % (0-4.5); HEMATOCRIT 37.4 % (32.4-45.2); HEMOGLOBIN 12.5 GM/dL (10.7-15.3); LYMPH % 16.5 % (8-40); MCH 28.4 pg (25.7-33.7); MCHC 33.5 g/dl (32.0-36.0); MEAN CELL VOLUME 84.6 fl (80-96); MEAN PLT VOLUME 9.5 fl (7.5-11.1); MONO % 12.4 % (3.8-10.2); NEUT % 69.2 % (42.8-82.8); PLATELET COUNT 196 10^3/uL (134-434); RBC 4.42 M/mm3 (3.60-5.2); RDW 15.1 % (11.6-15.6)
[2021-05-20] MEDS ORDERED: PANTOPRAZOLE SODIUM 40 MG VIAL ONE (10:14)
[2021-05-20] MEDS ORDERED: ONDANSETRON 4 MG/2 ML VIAL ONE (10:14)
[2021-05-20] MEDS ORDERED: MAG HYDROX/AL HYDROX/SIMETH 30 ML UNIT-DOSE CUP ONE (10:14)
[2021-05-20 10:34] LABS: ALBUMIN 3.4 g/dl (3.4-5.0); CALCIUM 8.7 mg/dL (8.5-10.1); MAGNESIUM 2.1 mg/dL (1.8-2.4)
[2021-05-20 10:38] LABS: BILIRUBIN,TOTAL 0.3 mg/dL (0.2-1); TOT PROT 7.1 g/dl (6.4-8.2)
[2021-05-20 14:00] LABS: PH,URINE 7.5 (5.0-8.0); URINE APPEARANCE CLEAR; URINE BILIRUBIN NEGATIVE (NEGATIVE); URINE COLOR YELLOW; URINE GLUCOSE (UA) NEGATIVE (NEGATIVE); URINE KETONE NEGATIVE (NEGATIVE); URINE LEUK ESTERASE NEGATIVE (NEGATIVE); URINE NITRITE NEGATIVE (NEGATIVE); URINE PROTEIN NEGATIVE (NEGATIVE); URINE UROBILINOGEN 0.2 mg/dL (0.2-1.0)
[2021-05-20 14:02] LABS: HCG,QUALITATIVE URINE Negative
== END 2021-05-20 14:50 | disposition home or self-care (01) ==
LOC: JER 08:48
PROC: 3E033GC Introduction of Other Therapeutic Substance into Peripheral Vein, Percutaneous Approach (ICD-10-PCS; principal; 2021-05-20)
DX: R10.84 Generalized abdominal pain (principal)
CPT/HCPCS: 36415; 74019-TC-FY; 74177-TC; 80053; 81003; 83690; 83735; 84703; 85025; 87086; 99285-25; Q9967

== ENCOUNTER 2022-03-21 10:59 | Emergency (ER) | payer BC, OTHER ==
[2022-03-21 11:09] VITALS: BP 106/73; PULSE 83; RESP 18; BMI 21.4
[2022-03-21] MEDS ORDERED: LIDOCAINE 5% TOPICAL PATCH TP ONE (12:32)
[2022-03-21] MEDS ORDERED: KETOROLAC TROMETHAMINE 60 MG/2 ML VIAL IM ONE (12:32)
[2022-03-21] MEDS ORDERED: ACETAMINOPHEN 325 MG TABLET (FP) PO ONE (12:32)
[2022-03-21] MEDS ORDERED: METHOCARBAMOL 500 MG TABLET PO ONE (12:34)
[2022-03-21] MEDS ORDERED: METHOCARBAMOL 500 MG TABLET ONE (12:48)
[2022-03-21] MEDS ORDERED: ACETAMINOPHEN 325 MG TABLET (FP) ONE (12:48)
[2022-03-21] MEDS ORDERED: LIDOCAINE 5% TOPICAL PATCH ONE (12:48)
[2022-03-21] MEDS ORDERED: KETOROLAC TROMETHAMINE 30 MG/1 ML VIAL ONE (12:48)
[2022-03-21] MEDS ORDERED: LIDOCAINE PATCH REMOVAL MC SCH (22:00)
== END 2022-03-21 13:06 | disposition home or self-care (01) ==
LOC: JERFT 10:59
PROC: 3E0233Z Introduction of Anti-inflammatory into Muscle, Percutaneous Approach (ICD-10-PCS; principal; 2022-03-21)
DX: M54.2 Cervicalgia (principal)
CPT/HCPCS: 99284-25

== ENCOUNTER 2023-11-23 13:12 | Emergency (ER) | payer OTHER ==
[2023-11-23 13:28] VITALS: TEMP 98.9; BMI 30.5
[2023-11-23] MEDS: LACTATED RINGERS SOLUTION 1000 ML INFUS.BAG IV ONE (14:35)
[2023-11-23 14:37] LABS: BASO % 0.4 % (0-2.0); EOS % 1.3 % (0-4.5); HEMOGLOBIN 13.5 GM/dL (10.7-15.3); LYMPH % 18.3 % (8-40); MCH 28.4 pg (25.7-33.7); MEAN PLT VOLUME 9.4 fl (7.5-11.1); MONO % 10.1 % (3.8-10.2); NEUT % 69.9 % (42.8-82.8); PLATELET COUNT 221 10^3/uL (134-434); RBC 4.77 M/mm3 (3.60-5.2); RDW 13.4 % (11.6-15.6); WHITE BLOOD COUNT 8.3 K/mm3 (4.0-10.0)
[2023-11-23 14:57] LABS: POTASSIUM 3.9 mmol/L (3.5-5.1)
[2023-11-23 15:00] LABS: ALBUMIN 3.7 g/dl (3.4-5.0); BLOOD UREA NITROGEN 8.7 mg/dL (7-18); CALCIUM 9.4 mg/dL (8.5-10.1)
[2023-11-23 15:03] LABS: CREATININE 0.8 mg/dL (0.55-1.3)
[2023-11-23 15:05] LABS: BILIRUBIN,TOTAL 0.3 mg/dL (0.2-1); TOT PROT 7.2 g/dl (6.4-8.2)
[2023-11-23] MEDS ORDERED: ONDANSETRON 4 MG/2 ML VIAL ONE (16:30)
[2023-11-23] MEDS: ONDANSETRON 4 MG/2 ML VIAL IVPUSH ONE (16:39)
[2023-11-23] MEDS: SODIUM CHLORIDE 0.9% 500 ML INFUS.BAG IV ONE (16:39)
[2023-11-23 18:26] VITALS: BP 109/59; PULSE 79; RESP 16
== END 2023-11-23 18:26 | disposition home or self-care (01) ==
LOC: JER 13:12
PROC: 3E033GC Introduction of Other Therapeutic Substance into Peripheral Vein, Percutaneous Approach (ICD-10-PCS; principal; 2023-11-23)
DX: R11.2 Nausea with vomiting, unspecified (principal); R19.7 Diarrhea, unspecified; R53.1 Weakness; R50.9 Fever, unspecified; R10.9 Unspecified abdominal pain; Z20.822 Contact with and (suspected) exposure to COVID-19
CPT/HCPCS: 0241U-QW; 36415; 80053; 85025; 96374; 99284-25

== ENCOUNTER 2023-12-18 11:20 | Emergency (ER) | payer OTHER ==
[2023-12-18 11:29] VITALS: BP 106/57; PULSE 67; RESP 20; TEMP 97.7; BMI 24.1
[2023-12-18] MEDS ORDERED: KETOROLAC TROMETHAMINE 30 MG/1 ML VIAL IM ONE (12:15)
[2023-12-18] MEDS ORDERED: KETOROLAC TROMETHAMINE 30 MG/1 ML VIAL ONE (12:32)
== END 2023-12-18 12:30 | disposition home or self-care (01) ==
LOC: JERFT 11:20
DX: S93.401A Sprain of unspecified ligament of right ankle, initial encounter (principal); X58.XXXA Exposure to other specified factors, initial encounter
CPT/HCPCS: 73610-TC-RT-FY; 73630-TC-RT-FY; 99283-25

== ENCOUNTER 2024-03-07 15:48 | Emergency (ER) | payer OTHER ==
[2024-03-07 16:09] VITALS: BP 101/67; PULSE 74; RESP 20; TEMP 97.6; BMI 23.3
[2024-03-07] MEDS ORDERED: FAMOTIDINE 20 MG/50 ML IVPB 20 MG/50 ML MG IVPB ONE (17:14)
[2024-03-07] MEDS ORDERED: MAG HYDROX/AL HYDROX/SIMETH 30 ML UNIT-DOSE CUP ONE (17:14)
[2024-03-07] MEDS ORDERED: ONDANSETRON 4 MG/2 ML VIAL ONE ×2 (17:14→21:28)
[2024-03-07] MEDS ORDERED: ACETAMINOPHEN INJECTION 100 ML ONE (17:55)
[2024-03-07] MEDS: ONDANSETRON 4 MG/2 ML VIAL IVPUSH ONE ×2 (18:12→21:34)
[2024-03-07] MEDS: SODIUM CHLORIDE 1,000 ML IV STA ×2 (18:12→21:34)
[2024-03-07] MEDS: FAMOTIDINE 20 MG/50 ML IVPB 20 MG/50 ML MG IVPB ONE (18:12)
[2024-03-07] MEDS: ACETAMINOPHEN 1000 MG/100 ML BAG IVPB ONE (18:13)
[2024-03-07 18:24] LABS: BASO % 0.4 % (0-2.0); EOS % 1.1 % (0-4.5); HEMATOCRIT 45.6 % (32.4-45.2); LYMPH % 30.6 % (8-40); MCH 28.2 pg (25.7-33.7); MCHC 32.9 g/dl (32.0-36.0); MEAN CELL VOLUME 85.5 fl (80-96); MEAN PLT VOLUME 10.1 fl (7.5-11.1); MONO % 9.8 % (3.8-10.2); NEUT % 58.1 % (42.8-82.8); PLATELET COUNT 230 10^3/uL (134-434); RBC 5.33 M/mm3 (3.60-5.2); RDW 14.4 % (11.6-15.6); WHITE BLOOD COUNT 8.7 K/mm3 (4.0-10.0)
[2024-03-07 18:24] LABS: INR 1.08 (0.83-1.09); PROTHROMBIN TIME (PATIENT) 12.2 SEC (9.7-13.0)
[2024-03-07 18:35] LABS: POTASSIUM 4.2 mmol/L (3.5-5.1)
[2024-03-07 18:37] LABS: ALBUMIN 4.2 g/dl (3.4-5.0)
[2024-03-07 18:38] LABS: BLOOD UREA NITROGEN 13.2 mg/dL (7-18)
[2024-03-07 18:38] LABS: THROAT:GRP A STREP NOT DETECTED (NOTDETECTED)
[2024-03-07 18:42] LABS: BILIRUBIN,TOTAL 0.5 mg/dL (0.2-1); TOT PROT 8.5 g/dl (6.4-8.2)
[2024-03-07 19:00] LABS: URINE APPEARANCE CLEAR; URINE BILIRUBIN NEGATIVE (NEGATIVE); URINE COLOR YELLOW; URINE GLUCOSE (UA) NEGATIVE (NEGATIVE); URINE KETONE NEGATIVE (NEGATIVE); URINE LEUK ESTERASE NEGATIVE (NEGATIVE); URINE NITRITE NEGATIVE (NEGATIVE); URINE PROTEIN NEGATIVE (NEGATIVE); URINE UROBILINOGEN 0.2 mg/dL (0.2-1.0)
[2024-03-07] MEDS: MAG HYDROX/AL HYDROX/SIMETH 30 ML UNIT-DOSE CUP PO ONE (19:18)
[2024-03-07 19:26] LABS: HIV INTERPRETATION NEGATIVE (NEGATIVE)
[2024-03-07 20:14] LABS: CREATININE 0.8 mg/dL (0.55-1.3)
== END 2024-03-07 22:39 | disposition home or self-care (01) ==
LOC: JER 15:48
PROC: 3E033GC Introduction of Other Therapeutic Substance into Peripheral Vein, Percutaneous Approach (ICD-10-PCS; principal; 2024-03-07)
PROC: 3E033GC Introduction of Other Therapeutic Substance into Peripheral Vein, Percutaneous Approach (ICD-10-PCS; 2024-03-07)
PROC: 3E033NZ Introduction of Analgesics, Hypnotics, Sedatives into Peripheral Vein, Percutaneous Approach (ICD-10-PCS; 2024-03-07)
PROC: 3E033GC Introduction of Other Therapeutic Substance into Peripheral Vein, Percutaneous Approach (ICD-10-PCS; 2024-03-07)
PROC: 3E0337Z Introduction of Electrolytic and Water Balance Substance into Peripheral Vein, Percutaneous Approach (ICD-10-PCS; 2024-03-07)
DX: R10.13 Epigastric pain (principal); G89.29 Other chronic pain; R11.2 Nausea with vomiting, unspecified; R68.83 Chills (without fever); Z20.822 Contact with and (suspected) exposure to COVID-19
CPT/HCPCS: 0241U-QW; 36415; 71045-TC-FY; 74177-TC; 80053; 81003; 83605; 83690; 84484; 84703; 85025; 85610; 85730; 86803; 86850; 86900; 86901; 87086; 87389; 87651; 93005; 93010; 99285-25; J0131; Q9967